=== PATIENT | female | born 1975 | race Two or more races ===

== ENCOUNTER 2020-12-16 15:01 | Emergency (ER) | payer SELFPAY ==
[~2020-12-16] VITALS: Ht 149.9 cm; Wt 59.9 kg
[2020-12-16 15:33] VITALS: BP 145/79
== END 2020-12-16 17:29 | disposition home or self-care (01) ==
LOC: ER 15:01
DX: S60.011A Contusion of right thumb without damage to nail, initial encounter (principal); W23.0XXA Caught, crushed, jammed, or pinched between moving objects, initial encounter; Y93.89 Activity, other specified; Y92.89 Other specified places as the place of occurrence of the external cause; Y99.8 Other external cause status
CPT/HCPCS: 73140